=== PATIENT | male | born 1960 | race Caucasian/White ===

== ENCOUNTER → 2021-04-27 11:06 | Outpatient (BNVA) | payer OTHER, SELFPAY | PROVIDERS: PCP Physician Assistant; Visit Provider Orthopaedic Surgery | DX: R20.0 Anesthesia of skin (principal) | CPT/HCPCS: 99202 ==

== ENCOUNTER 2021-06-16 10:06 | Outpatient (REF) | payer OTHER, SELFPAY ==
--- NOTE | 2021-06-16 10:09 | EMG_ITS ---
Right median and ulnar motor and sensory studies were performed. Right radial sensory study was performed and paraspinal muscles were tested. IMPRESSION: 1. Moderately severe right median neuropathy across carpal tunnel. 2. Mild right ulnar neuropathy across cubital tunnel. MD SANTIAGO Bravo/AMY / [id number]
== END 2021-06-16 10:07 | disposition home or self-care (01) ==
LOC: HO.NEURO 10:06
PROVIDERS: PCP Internal Medicine; Visit Provider Orthopaedic Surgery
DX: R20.0 Anesthesia of skin (principal); R20.2 Paresthesia of skin
CPT/HCPCS: 95886; 95909

== ENCOUNTER → 2021-07-19 13:37 | Outpatient (BNVA) | payer OTHER, SELFPAY | PROVIDERS: PCP Internal Medicine; Visit Provider Orthopaedic Surgery | DX: G56.01 Carpal tunnel syndrome, right upper limb (principal); G56.21 Lesion of ulnar nerve, right upper limb | CPT/HCPCS: 99212 ==

== ENCOUNTER 2021-10-27 09:45 | Day surgery (SDC) | payer OTHER, SELFPAY ==
[2021-10-27 10:05] VITALS: BP 137/83; PULSE 72; RESP 18; TEMP 36.1; O2SAT 96
--- NOTE | 2021-10-27 11:21 | MHC.SHP ---
Pre-Procedural Eval Section A Date of Service: 10/27/21 The patient is an INPATIENT: No Changes since office visit: No Cold of Flu in the past 2 weeks, No New Medical Problems, No Changes in Medication and No Patient answered all questions The History & Physical has been completed within 30 days and I have reviewed it.: Yes Section B Chief Complaint: carpal tunnel syndrome Allergies: Allergies Allergy/AdvReac Type Severity Reaction Status Date / Time azithromycin [AZITHROMYCIN] AdvReac Mild NAUSEA Verified 10/27/21 10:18 Z-Bruce Allergy Unknown Unknown Uncoded 10/27/21 10:18 Plan I have reviewed the history and physical and performed a pertinent physical examination on my patient. No changes have occurred unless specified.
--- NOTE | 2021-10-27 11:21 | W.PM.OPN ---
Operative Note Operative Note Date of Service: 10/27/21 Narrative: Preop diagnosis: 1. right Carpal tunnel syndrome Postop diagnosis: same Procedure: 1. right Carpal tunnel release Surgeon: Tierra Cruz MD Anesthesia: local block using 1% lidocaine with epinephrine Findings: Thickened transverse carpal ligament. EBL: Less than 5 mL Specimens: None Complications: None Disposition: Brought to recovery room in stable condition Plan: Follow-up for 10-14 days for wound check and suture removal Indications: The patient is 61 years old, with right carpal tunnel syndrome that has been unresponsive to nonoperative management. The risks and benefits of operative treatment including but not limited to risk of damage to blood vessels, nerves, tendons, infection, persistent pain, persistent symptoms, or possible need for additional surgery were discussed with the patient and the patient wishes to proceed with surgery. Procedure: Once consent was obtained a local block was performed using a combination of 1% lidocaine with epinephrine. The patient was then brought back to the operating suite and placed on the operative table in supine position. A tourniquet was applied to the proximal aspect of the right upper extremity and the limb was prepped and draped in a standard surgical fashion. Once assured that we had a good block, a 1.5 cm longitudinal incision was made centered over the carpal tunnel. The incision was made through the skin to the subcutaneous tissues using a #15 blade. Dissection was made down to the level of the transverse carpal ligament with care being taken to protect the palmar cutaneous nerve. Once the transverse carpal ligament was clearly visualized, a longitudinal incision was made in the transverse carpal ligament 1st using a #15 blade, then using tenotomy scissors under direct visualization. Care was taken to look for and protect the motor branch of the median nerve when seen in this area. Once satisfied with our carpal tunnel release the wound was copiously irrigated with normal saline and hemostasis was obtained with a brief period of local pressure. The skin edges were reapproximated with some 5.0 nylon suture material and a sterile dressing was applied. The patient appears to have tolerated the procedure well and with no complications. All digits were well vascularized at the conclusion of the case.
[2021-10-27 14:12] VITALS: BP 156/75; PULSE 65; RESP 16; TEMP 36.4; O2SAT 97
== END 2021-10-27 14:24 | disposition home or self-care (01) ==
PROVIDERS: PCP Internal Medicine; Visit Provider Orthopaedic Surgery
PROC: (CPT 64721; principal; 2021-10-27 11:10)
DX: G56.01 Carpal tunnel syndrome, right upper limb (principal); R20.0 Anesthesia of skin; G56.21 Lesion of ulnar nerve, right upper limb; E11.9 Type 2 diabetes mellitus without complications; Z79.84 Long term (current) use of oral hypoglycemic drugs; Z79.899 Other long term (current) drug therapy; Z88.1 Allergy status to other antibiotic agents; F10.10 Alcohol abuse, uncomplicated; F19.10 Other psychoactive substance abuse, uncomplicated
CPT/HCPCS: 64721

== ENCOUNTER → 2021-12-02 10:21 | Outpatient (BNVA) | payer OTHER, SELFPAY | PROVIDERS: Visit Provider Physician Assistant | DX: G56.01 Carpal tunnel syndrome, right upper limb (principal) | CPT/HCPCS: 99212 ==

== ENCOUNTER → 2022-01-17 13:01 | Outpatient (BNVA) | payer OTHER, SELFPAY | PROVIDERS: Visit Provider Physician Assistant | DX: Z09 Encounter for follow-up examination after completed treatment for conditions other than malignant neoplasm (principal); Z86.69 Personal history of other diseases of the nervous system and sense organs | CPT/HCPCS: 99212 ==

== ENCOUNTER 2024-12-22 09:58 | Outpatient (REF) | payer OTHER, SELFPAY ==
[2024-12-22 11:29] LABS: Erythrocyte Sedimentation Rate 4 MM/HR (0-15)
--- OUTSIDE RECORDS SUMMARY | 2024-12-22 11:39 | XMS_ITS | Encounter Summary ---
Author Organization [facility] Address [address] [facility] [address] [place] [address] Phone Care Team Providers Care Flatbed Truck Driver Name Role Phone Juan Daniel Valle MD Primary Care Provider Unavail able Reason for Visit * Reason Comments Med Refill Encounter Details Date Type Department Care Team (Late st Contact Info) Description 07/22/2024 Refill [facility] [address] [facility] [address] [place] [phone] Quang Alfaro MD [address] [facility] [address] [place] [phone] Social History Tobacco Use Types Packs/Day Years Used Date Smoking Tobacco: Former Smokeless Tobacco: Former Alcohol Use Standard Drinks/Week Comments No 0 (1 standard drink = 0.6 oz pur e alcohol) Sex and Gender Information Value Date Recorded Sex Assigned at Not on file Legal Sex Male 5:01 PM EST Gender Identity Not on file Sexual Orientation Not on file documented as of this encounter Plan of Treatment Not on file documented as of this encounter Visit Diagnoses Not on filedocumented in this encounter Care Teams Flatbed Truck Driver Relationship Specialty Start Date End Date Juan Daniel Valle MD PCP - General Endocrinology 02/04/21 documented as of this encounter
--- OUTSIDE RECORDS SUMMARY | 2024-12-22 11:39 | XMS_ITS | Encounter Summary ---
Author Organization [facility] Address [address] [place] [address] Phone Care Team Providers Care Payroll Analyst Name Role Phone Juan Daniel Valle MD Primary Care Provider Unavail able Encounter Details Date Type Department Care Team (Late st Contact Info) Description 02/04/2021 Orders Only [facility] [address] [place] [address] Provider, MD Herbie [address] [place] [id number] Social History Tobacco Use Types Packs/Day Years Used Date Smoking Tobacco: Never Assessed Sex and Gender Information Value Date Recorded Sex Assigned at Not on file Legal Sex Male 5:01 PM EST Gender Identity Not on file Sexual Orientation Not on file documented as of this encounter Plan of Treatment Not on file documented as of this encounter Procedures Procedure Name Priority Date/Time Associated Diagnosis Comments EXT RESULT ENTRY Routine 11/23/2020 documented in this encounter Results * EXT RESULT ENTRY (11/23/2020) us Historical Provider LAB BLOOD ORDERABLES Dasia l Result documented in this encounter Visit Diagnoses Not on filedocumented in this encounter Care Teams Payroll Analyst Relationship Specialty Start Date End Date Juan Daniel Valle MD PCP - General Endocrinology 02/04/21 documented as of this encounter
--- OUTSIDE RECORDS SUMMARY | 2024-12-22 11:39 | XMS_ITS | Clinical Summary ---
Author Organization [address] Address [address] [place] [phone] Phone Care Team Providers Care Adjunct Business Instructor Name Role Phone Duarte Alarcon MD Primary Care Provider [phone] Allergies Active Allergy Reactions Criticality Noted Date Comments Azithromycin 02/03/2016 rash Indomethacin Nausea And Vomiting 10/31/2010 Other Reaction(s): OTHER gerd Lisinopril 03/30/2020 Dizziness. D/c by neph. Medications atorvastatin (LIPITOR) 10 mg tablet Take 1 Tablet by mouth daily for 360 days. 12/19/19 24 Active diclofenac (VOLTAREN) 1 % topical gel Apply 1 g topically 4 times daily as needed (pain). 12/19/19 24 Active ketoconazole (NIZORAL) 2 % cream APPLY 1 APPLICATION OF CREAM TOPICALLY TO AFFECTED AREA TWICE DAILY 09/28/19 24 Active blood sugar diagnostic (FreeStyle Lite Strips) test strip 1 Lancet by extracorporeal route 2 (two) times a day. 08/01/20 23 Active sildenafiL (VIAGRA) 100 mg tablet 1/2 to 1 tablet 1 hour before needed 06/01/20 23 Active tiZANidine (ZANAFLEX) 4 mg tablet Take 1 tablet (4 mg total) by mouth 3 (three) times a day if needed. 02/15/20 22 Active naproxen (NAPROSYN) 500 mg tablet Take 1 tablet (500 mg total) by mouth every 12 (twelve) hours. 02/13/20 22 Active buprenorphine -naloxone (Zubsolv) 11.4-2.9 mg tablet, sublingual Place 1 film under the tongue 1 (one) time each day. Max Daily Amount: 1 film 02/15/20 Active traZODone (DESYREL) 150 mg tablet Take 1-2 tablets (150-300 mg total) by mouth at bedtime as needed. 01/26/20 Active FREESTYLE LANCETS MISC USE 1 TO CHECK GLUCOSE TWICE PERRY 10/10/19 Active NIFEdipine (ADALAT CC) 30 mg 24 hr tablet Take 1 tablet (30 mg total) by mouth 1 (one) time each day before breakfast. 05/08/20 24 Active DULoxetine (CYMBALTA) [address] capsule Take 1 capsule (60 mg total) by mouth 1 (one) time each day. Active pen needle, diabetic (BD ULTRA-FINE ALCIDES PEN NEEDLE MISC) Insulin Pen Needle (BD PEN NEEDLE ALCIDES U/F) 32G X 4 MM Misc 1 needle per day for For Victoza 07/12/20 18 Active metoprolol tartrate (LOPRESSOR) 50 mg tablet Take 1 tablet by mouth twice daily 180 tablet 1 10/17/19 25 Active Trulicity 3 mg/0.5 mL pen injector injection INJECT 3 MG (0.5 ML) SUBCUTANEOUSLY ONCE A WEEK 6 mL 1 12/17/19 25 Active Jardiance 25 mg tablet Take 1 tablet by mouth once daily 90 tablet 1 12/20/19 25 Active dulaglutide (Trulicity) 3 mg/0.5 mL pen injector injection Inject 0.5 mL (3 mg total) under the skin 1 (one) time per week. 12/24/19 24 2024 Discontinued Jardiance 25 mg tablet Take 1 tablet by mouth once daily 90 tablet 09/19/19 25 2024 Discontinued Active Problems Problem Noted Date Diagnosed Date Type 2 diabetes mellitus with vascular disease 0 05/15/2019 Mood disorder 10/30/2015 Overview (08/09/2024): Dr. Levy Anxiety 10/29/2015 Polysubstance abuse 05/03/2015 DJD (degenerative joint disease), lumbar 012 Overweight (BMI 25.0-29.9) 12/09/2010 Erectile dysfunction 10/31/2010 Depressive disorder 09/29/2009 Essential hypertension, benign 04/19/2006 Encounters Date Type Department Care Team Description 09/30/2024 2:00 PM EST Office Visit Adult Medicine [address] [phone] Caleb Contreras PA Routine history and physical examination of adult (Primary Dx); Type 2 diabetes mellitus with vascular disease (CMS/HCC); Screening PSA (prostate specific antigen); Chronic bilateral low back pain, unspecified whether sciatica present; Imbalance; Forgetfulness; Drooling from Last 3 Months Immunizations Name Administration Dates Next Due Influenza Quadravalent, MDCK , 0.5ml, preservative free (Flucelvax) 6mo and older 06/01/2023,06/27/2018 Influenza trivalent, 0.5mL, preservative free (Fluarix; FluLaval; Fluzone) ages 6mo and older (Afluria) 3 years and older 07/12/2019,06/14/2017,07/26/2016,07/17,08/18/2010 Influenza trivalent, with pr eservative (Fluzone; Afluria) 6mo and older 06/13/2022,06/09/2020 Moderna SARS-CoV-2 COVID-19, mRNA, LNP-S, preservative free 01/30/2021,01/01/2021 Pneumococcal polysaccharide 23 valent (Pneumovax 23) 2yo and older 02/03/2016 Td Tetanus diptheria (Tdvax) 7yo and older 02/16/2022 Tdap Tetanus diptheria acell ular pertussis (Boostrix; Adacel) 7yo and older 11/12/2007 Surgical History Surgery Date Site/Laterality Comments COLONOSCOPY 01/17/2016 PROCEDURE: HISTORICAL COLONOSCOPY; COMMENT: normal Medical History Medical History Date Comments Type II or unspecified type diabetes mellitus with unspecified complication, not stated as uncontrolled DX:Type II or unspecified ty pe diabetes mellitus with unspecified complication, not stated as uncontrolled Essential hypertension, benign D X:Essential hypertension, benign Amblyopia, unspecified DX:Amblyo eugenio, unspecified Obesity 12/09/2010 DX:Obesity Family History Medical History Relation Name Comments No Known Problems Aunt No Known Problems Brother No Known Problems Father No Known Problems Maternal Grandfather No Known Problems Maternal Grandmother No Known Problems Mother No Known Problems Other No Known Problems Paternal Grandfather No Known Problems Paternal Grandmother No Known Problems Sister No Known Problems Uncle Blindness Neg Hx Cataracts Neg Hx Glaucoma Neg Hx Macular degeneration Neg Hx Strabismus Neg Hx Relation Name Status Comments Aunt Brother Father Maternal Grandfather Maternal Grandmother Mother Other Paternal Grandfather Paternal Grandmother Sister Uncle Social History Tobacco Use Types Packs/Day Years Used Date Smoking Tobacco: Never Cigarettes Qu it: 06/17/2005 Smokeless Tobacco: Never Tobacco Cessation:Counseling Given: Not Answered Alcohol Use Standard Drinks/Week Comments No 0 (1 standard drink = 0.6 oz pur e alcohol) Sex and Gender Information Value Date Recorded Sex Assigned at Not on file Legal Sex Male 7:28 AM EST Gender Identity Not on file Sexual Orientation Not on file Obstetrics History Last Filed Vital Signs Vital Sign Reading Time Taken Comments Blood Pressure 120/72 09/30/2024 2:13 PM EST Pulse 76 09/30/2024 2:13 PM EST Temperature 35.8 ??C (96.5 ??F) 09/30/2024 2:13 PM ES T Respiratory Rate - - Oxygen Saturation 93% 09/30/2024 2:13 PM EST Inhaled Oxygen Concentration - - Weight 87.4 kg (192 lb 11.2 oz) 09/30/2024 2:13 PM EST Height 172.7 cm (5' 7.99 ) 09/30/2024 2:13 PM ES T Body Mass Index 29.31 09/30/2024 2:13 PM EST Plan of Treatment Upcoming Encounters Date Type Department Care Team (Late st Contact Info) Description 04/02/2025 1:15 PM EDT Office Visit Adult Medicine [address] [phone] Duarte Alarcon MD [address] [place] [phone] Health Maintenance Due Date Last Done Comments Diabetes: Annual Foot Exam 1970 Diabetes: Annual Retina Eye Exam 1970 Hepatitis A Vaccines (1 of 2 - Risk 2-dose series) 1979 Zoster Vaccines (1 of 2) 2010 Pneumococcal Vaccine: 50+ Years (2 of 2 - PCV) 02/02/2017 02/03/2016 RSV Immunization Adult Patients (1 - Risk 60-74 years 1-dose series) 2020 HIV Screening 08/26/2022 Medicare Annual Wellness Visit 08/26/2022 Diabetes: Annual Urine Albumin-Creatinine Ratio (uACR) 06/01/2024 06/01/2023 Diabetes: Annual GFR (Glomerular Filtration Rate) 06/01/2024 06/01/2023 Hypertension/CHF/CAD Annual BMP Blood Test 06/01/2024 06/01/2023 Diabetes: Blood Sugar Control Test (HGBA1C) 06/19/2024 12/19/2023 Depression Screening 09/30/2025 09/30/2024 Social Influencers of Health Screening 09/30/2025 09/30/2024 Colorectal Cancer Screening: Colonoscopy 01/16/2026 01/17/2016 Cholesterol Screening (Lipid Panel) 06/01/2028 06/01/2023 DTaP,Tdap,and Td Vaccines (3 - Td or Tdap) 02/17/2032 02/16/2022, 11/12/2007 Pneumococcal Vaccine: Pediatrics (0 to 5 Years) and At-Risk Patients (6 to 64 Years) Discontinued 02/03/2016 Hepatitis C Screening Completed 04/08/2021 COVID-19 Vaccine Completed 06/26/2024, , 08/28/2021, Additional history exists Influenza Vaccine Completed 06/26/2024, , 06/13/2022, Additional history exists HIB Vaccines Aged Out No longer eligi ble based on patient's age to complete this topic HPV Vaccines Aged Out No longer eligi ble based on patient's age to complete this topic Hepatitis B Vaccines Aged Out No long er eligible based on patient's age to complete this topic IPV Vaccines Aged Out No longer eligi ble based on patient's age to complete this topic MMR Vaccines Aged Out No longer eligi ble based on patient's age to complete this topic Meningococcal ACWY Vaccine Aged Out N o longer eligible based on patient's age to complete this topic Meningococcal B Vacine Aged Out No lo nger eligible based on patient's age to complete this topic RSV Immunization Patients Under 20 months Aged Out No longer eligible based on patient's age to complete this topic Varicella Vaccines Aged Out No longer eligible based on patient's age to complete this topic Procedures Procedure Name Priority Date/Time Associated Diagnosis Comments HEMOGLOBIN A1C Routine 12/19/2023 URINE ALBUMIN CREATININE RATIO Routine 06/01/2023 ANNUAL BMP BLOOD TEST Routine 06/01/2023 LIPID PANEL Routine 06/01/2023 HEPATITIS C SCREENING Routine 04/08/2021 COLONOSCOPY Routine 01/17/2016 from Last 3 Months or Most Recently Relevant to Health Maintenance Results * (ABNORMAL) Hemoglobin A1c (12/19/2023) [facility] Hemoglobin A1C 8.3(A) <=6.5 % Blood Venous blood specimen / Unknown Result [facility] Provider LAB BLOOD ORDERABLES Dasia l Result * Urine Albumin Creatinine Ratio (06/01/2023) Pathologist [facility] Urine Albumin Creatinine Ratio Abstracted Result [facility] Provider HEALTH MAINTENANCE Final Result * Annual BMP Blood Test (06/01/2023) Pathologist [facility] Annual BMP Blood Test Abstracted Result [facility] Provider HEALTH MAINTENANCE Final Result * (ABNORMAL) Lipid panel (06/01/2023) [facility] LDL/HDL Ratio 3 0 - 4 Triglycerides 97 0 - 150 mg/dL Cholesterol 178 0 - 200 mg/dL HDL 58 >=40 mg/dL LDL Cholesterol 101(A) 0 - 100 mg/dL Blood Venous blood specimen / Unknown Result [facility] Provider LAB BLOOD ORDERABLES Dasia l Result * Hepatitis C Screening (04/08/2021) [facility] Hepatitis C Screening Abstracted Historical Provider HEALTH MAINTENANCE Final Result * Colonoscopy (01/17/2016) Colonoscopy No Interpretation , Abstracted Anatomical Region Laterality Modality Other us Historical Provider HEALTH MAINTENANCE Final Result from Last 3 Months or Most Recently Relevant to Health Maintenance Insurance MEDICARE [employer] MEDICARE Member Subscriber Plan / Payer (Ef fective 2024-Present) Name:Chito Fam Luci Relation to Subscriber:Self Name:Chito Fam Payer ID:[id number] Group ID:[id number] Type:Not on file Address: [address] [place] [address] Care Teams Adjunct Business Instructor Relationship Specialty Start Date End Date Duarte Alarcon MD [address] [place] [phone] PCP - General Internal Medicine 03/25/20
--- OUTSIDE RECORDS SUMMARY | 2024-12-22 11:39 | XMS_ITS | Encounter Summary ---
Author Organization [facility] Address [address] [facility] [address] [place] [address] Phone Care Team Providers Care Cement Side Laster Name Role Phone Juan Daniel Valle MD Primary Care Provider Unavail able Reason for Visit * Reason Comments Med Refill Encounter Details Date Type Department Care Team (Late st Contact Info) Description 05/04/2024 [facility]ill [facility] [address] [place] [phone] Quang Alfaro MD [address] [facility] [address] [place] [phone] Social History Tobacco Use Types Packs/Day Years [...] on filedocumented in this encounter Care Teams Cement Side Laster Relationship Specialty Start Date End Date Juan Daniel Valle MD PCP - General Endocrinology 02/04/21 documented as of this encounter
--- OUTSIDE RECORDS SUMMARY | 2024-12-22 11:39 | XMS_ITS | Clinical Summary ---
Author Organization [facility] Address [address] [address] Phone Care Team Providers Care Fruit Or Nut Farm Worker Name Role Phone Juan Daniel Valle MD Primary Care Provider Unavail able Allergies Active Allergy Reactions Criticality Noted Date Comments Azithromycin Rash Low 05/10/2021 Indomethacin Other (see comments) 05/10/2021 Medications traZODone (DESYREL) 150 MG tablet TAKE 2 TABLETS BY MOUTH EVERY DAY AT BEDTIME 1 Active FREESTYLE LITE test strip 1 Active Jardiance 25 MG tablet Take 1 tablet by mouth 1 (one) time each day 1 Active DULoxetine (CYMBALTA) [address] capsule TAKE 1 CAPSULE BY MOUTH ONCE DAILY IN THE MORNING FOR 30 DAYS 1 Active Trulicity 1.5 MG/0.5ML solution pen-injector INJECT 1.5MG (ONE HALF ML) SUBCUTANEOUSLY EVERY 7 DAYS 1 Active Zubsolv 11.4-2.9 MG sublingual tablet 1 Active amphetamine-de xtroamphetamin e (ADDERALL) 30 MG tablet Take 1 tablet by mouth 1 (one) time each day Active aspirin (ST LIANE) 81 MG EC tablet Take 1 tablet by mouth 1 (one) time each day Active metFORMIN (GLUCOPHAGE) 500 MG tablet Take 2 tablets by mouth 2 (two) times a day Active metoprolol succinate XL (TOPROL XL) 50 MG 24 hr tablet Take 1 tablet by mouth 2 (two) times a day Active sildenafil (VIAGRA) 100 MG tablet as directed Active NIFEdipine CC (ADALAT CC) 30 MG 24 hr tablet TAKE 1 TABLET BY MOUTH ONCE DAILY BEFORE BREAKFAST DO NOT CRUSH, CHEW, OR SPLIT 90 tablet 4 Active NIFEdipine CC (ADALAT CC) 30 MG 24 hr tablet Take 1 tablet (30 mg total) by mouth 1 (one) time each day before breakfast DO NOT CRUSH CHEW OR SPLIT 90 tablet 4 Active Active Problems Problem Noted Date Diagnosed Date Chronic kidney disease, stage 2 (mild) 2 Type 2 diabetes mellitus wit h diabetic chronic kidney disease 06/22/2022 Essential hypertension 05/10/2021 Hyperkalemia 05/10/2021 Type 2 diabetes mellitus 05/10/2021 Family History Medical History Relation Comments Hypertension Mother Relation Status Comments Father Alive Mother Social History Tobacco Use Types Packs/Day Years Used Date Smoking Tobacco: Former Smokeless Tobacco: Former Alcohol Use Standard Drinks/Week Comments No 0 (1 standard drink = 0.6 oz pur e alcohol) Sex and Gender Information Value Date Recorded Sex Assigned at Not on file Legal Sex Male 5:01 PM EST Gender Identity Not on file Sexual Orientation Not on file Last Filed Vital Signs Vital Sign Reading Time Taken Comments Blood Pressure 140/85 06/22/2022 3:28 PM EDT Pulse 66 06/22/2022 3:28 PM EDT Temperature - - Respiratory Rate - - Oxygen Saturation 99% 06/22/2022 3:28 PM EDT Inhaled Oxygen Concentration - - Weight 81.6 kg (180 lb) 06/22/2022 3:28 PM EDT Height 175.3 cm (5' 9 ) 06/26/2019 12:00 PM EDT Body Mass Index 26.58 06/26/2019 12:00 PM EDT Plan of Treatment Health Maintenance Due Date Last Done Comments Colorectal Cancer Screening: Annual FOBT 2009 Colorectal Cancer Screening: Colonoscopy 2009 Colorectal Cancer Screening: Sigmoidoscopy 2009 Pneumococcal Vaccine: Pediatrics (0 to 5 Years) and At-Risk Patients (6 to 64 Years) (2 of 2 - PCV) 02/02/2017 02/03/2016 Diabetes: Ophthalmology Exam 03/28/2021, 11/18/2013, 06/14/2012, Additional history exists Diabetes: Pedal Pulse Checked 03/28/2021 Diabetes: Sensory Foot Exam 03/28/2021 Diabetes: Visual Foot Exam 03/28/2021 Diabetes: Hemoglobin A1C 08/31/2023 023, 04/08/2021, 11/21/2019, Additional history exists Influenza Vaccine (Season Ended) 2025 06/01/2023, 06/01/2023, 06/27/2018 Hepatitis B Vaccine Aged Out No longe r eligible based on patient's age to complete this topic Procedures Procedure Name Priority Date/Time Associated Diagnosis Comments EXT RESULT ENTRY Routine 04/08/2021 from Last 3 Months or Most Recently Relevant to Health Maintenance Results * (ABNORMAL) EXT RESULT ENTRY (04/08/2021) WBC 8.8 3.3 - 10.0 10*3/ML Red Blood Cell Count 4.9 Hemoglobin 14.9 13.5 - 17.5 Hematocrit 44.7 41.0 - 53.0 Platelets 259 150 - 399 10*3/UL MCV 91.4 82.0 - 108.0 Sodium 137 137 - 147 Potassium 4.4 3.4 - 5.5 Chloride 101 99 - 108 Bicarbonate (CO2) 31(A) 22 - 30 mmol/L Anion Gap 5 <=30 MMOL/L Glucose 155 60 - 200 BUN 21 4 - 21 mg/dL Creatinine 0.65 0.60 - 1.30 mg/dL Calcium 8.8 8.7 - 10.7 mg/dL eGFR Non-Afr Iranian >60 Hemoglobin A1C 7.2(A) 4.0 - 6.0 04/08/2021 us Historical Provider LAB BLOOD ORDERABLES Dasia l Result from Last 3 Months or Most Recently Relevant to Health Maintenance Insurance [facility] Care Teams Fruit Or Nut Farm Worker Relationship Specialty Start Date End Date Juan Daniel Valle MD PCP - General Endocrinology 02/04/21
--- OUTSIDE RECORDS SUMMARY | 2024-12-22 11:39 | XMS_ITS | Encounter Summary ---
Author Organization [facility] Address [address] [place] [address] Phone Care Team Providers Care Woodyard Operator Name Role Phone Juan Daniel Valle MD Primary Care Provider Unavail able Encounter Details Date Type Department Care Team (Late st Contact Info) Description 06/20/2022 Telephone [facility] [address] [place] [phone] Arielle Martin Social History Tobacco Use Types Packs/Day Years [...] on file documented as of this encounter Miscellaneous Notes * Telephone Encounter - Arielle Martin - 06/20/2022 3:59 PM EDT PT called needing a refill for NIFEdipine CC (ADALAT CC) 30 MG 24 hr tablet, PT hasn't been seen zeke year please advise. documented in this encounter Plan of Treatment Not on file documented as of this encounter Visit Diagnoses Not on filedocumented in this encounter Care Teams Woodyard Operator Relationship Specialty Start Date End Date Juan Daniel Valle MD PCP - General Endocrinology 02/04/21 documented as of this encounter
[2024-12-23 10:57] LABS: Lyme Abs Screen <0.90 index
== END 2024-12-22 09:59 | disposition home or self-care (01) ==
LOC: HO.LAB 09:58
PROVIDERS: Absent Provider Psychiatry & Neurology Neurology; PCP Internal Medicine; Visit Provider Psychiatry & Neurology Neurology
DX: M79.7 Fibromyalgia (principal)
CPT/HCPCS: 36415; 82550; 85652; 86617; 86618

== ENCOUNTER 2025-04-30 13:33 | Outpatient (AMB) | payer OTHER, SELFPAY ==
--- NOTE | 2025-04-30 13:39 | A.OFFVIS_ITS ---
Intake Visit Reasons: 4 Months Allergies azithromycin (AZITHROMYCIN) Adverse Reaction (Mild, Verified 01/17/22 13:10) NAUSEA Z-Bruce Allergy (Unknown, Uncoded 01/17/22 13:10) Unknown HPI Comments Details: 65 yo man with type II DM, HTN, and substance abuse, including active use of Fentanyl and cocaine, and fibromyalgia type of symptoms. He is presenting with chronic back pain associated with degenerative disc disease affecting his cervical and lumbar spine. This condition leads to significant neck discomfort and upper back muscle spasms, markedly influencing his functional capacity. He manages his symptoms with pregabalin, which offers some relief for nerve pain, and reports beneficial effects from muscle relaxers, though his usage is limited due to a history of cocaine addiction. The patient consults regularly for hypertension management, currently treated with nifedipine, but notes persistent dizziness. Previous carpal tunnel surgeries have alleviated severe symptoms, yet numbness and tingling in his wrists persist. [facility] Medical History (Updated 04/30/25 @ 13:40 by Jenny Burnham MD) Hypertension MCI (mild cognitive impairment) Encephalopathy Drug abuse and dependence Fibromyalgia Central pontine myelinosis Multifactorial gait disorder Peripheral neuropathy Type II diabetes mellitus Marijuana abuse H/O cocaine abuse Cerebral microvascular disease Substance abuse RLS (restless legs syndrome) Insomnia Depression with anxiety Acute carpal tunnel syndrome of right wrist Carpal tunnel syndrome of left wrist Social History Current occupational status: retired Current occupation: rt hand Review of Systems Const Details: - Musculoskeletal: Reports chronic back pain, upper back spasms, wrist numbness, and tingling. - Neurologic: Reports dizziness; Denies hallucinations or memory issues. - Cardiovascular: Reports dizziness potentially linked to hypertension medication. - Substance Use: Reports past cocaine addiction and reduced marijuana use; Denies alcohol consumption. Physical Exam Neuro Other: Mental Status: Alert and oriented to person, place, and time. Normal attention. Normal spontaneous speech, fluency, and comprehension. Cranial Nerves: CN II: Visual zaldivar full to confrontation, visual acuity intact. CN III, IV, : Pupils equal, round, reactive to light and accommodation. Extraocular movements are normal. CN V: Facial sensation is normal. CN VII: Facial movements symmetrical. CN VIII: Hearing intact to bedside conversation is normal. CN IX, X: Palate elevates symmetrically. CN XI: Shoulder shrug and head turn symmetrical. CN XII: Tongue midline without atrophy or fasciculations. Speech: Normal; no dysarthria or tremor. Assessment & Plan Assessment & Plan (1) Fibromyalgia: Comment: MRI brain WO at [facility] in Dec 2024: Mild to mod MVD, especially in daly sug gestive of CPM MRI whole spine at [facility] in 2020: DJD, mod C 5/6 stenosis, T 7/8 central disc, pontine hyperintensity, ?CPM Code(s): M79.7 - Fibromyalgia Category: Medical (2) MCI (mild cognitive impairment): Code(s): G31.84 - Mild cognitive impairment of uncertain or unknown etiology Category: Medical Plan Impression: Chronic pain syndrome Rec: a: Pregabilin 100mg bid b: Tizanidine 4mg bid Medications: Changed From tizanidine (Zanaflex) 4 mg PO ONCE 90 tabs 0RF To tizanidine (Zanaflex) 4 mg PO BID 180 tabs 1RF Coding Level of Care Code Est Pt Level 4 (66567) Diagnoses Fibromyalgia M79.7 MCI (mild cognitive impairment) G31.84
--- OUTSIDE RECORDS SUMMARY | 2025-04-30 14:24 | XMS_ITS | Clinical Summary ---
Author Organization [facility] Address [address] [address] Phone Care Team Providers Care Wooden Fence Erector Name Role Phone Duarte Alarcon MD Primary Care Provider [phone] Allergies Active Allergy Reactions Criticality Noted Date Comments Azithromycin Rash Low 05/10/2021 Indomethacin Other (see comments) 05/10/2021 Lisinopril 03/30/2020 Dizziness. D/c by neph. Medications traZODone (DESYREL) 150 MG tablet TAKE [...] NOT CRUSH CHEW OR SPLIT 90 tablet Active Additional Information Patient not taking.Reported on 01/27/2025 desvenlafaxine (PRISTIQ) 50 MG 24 hr tablet Take 50 mg by mouth 1 (one) time each day Do not crush, chew, or split. Active pregabalin (LYRICA) 100 MG capsule Take 100 mg by mouth in the morning and 100 mg in the evening. Active escitalopram (LEXAPRO) 5 MG tablet Take 5 mg by mouth 1 (one) time each day Active hydroCHLOROthi azide (HYDRODIURIL) 50 MG tablet Take 50 mg by mouth 1 (one) time each day Active NIFEdipine CC (ADALAT CC) 30 MG 24 hr tablet Take 1 tablet (30 mg total) by mouth 1 (one) time each day before breakfast DO NOT CRUSH CHEW OR SPLIT 90 tablet 5 Active Active Problems Problem Noted Date Diagnosed Date Chronic kidney disease, stage 2 (mild) 2 Type 2 diabetes mellitus wit h diabetic chronic kidney disease 06/22/2022 Essential hypertension 05/10/2021 Hyperkalemia 05/10/2021 Type 2 diabetes mellitus 05/10/2021 Immunizations Immunization Administration Dates Next Due Influenza (IM) Preservative Free 019,06/14/2017,07/26/2016, 4,08/18/2010 Influenza, MDCK, PF, Quadrivalent 06/01/2023,07/2018 Moderna SARS-COV-2 08/28/2021,01/30/2021, 021 Pfizer SARS-COV-2 06/13/2022 Pneumococcal Polysaccharide 02/03/2016 Td 02/16/2022 Family History Medical History Relation Comments Hypertension [...] Sign Reading Time Taken Comments Blood Pressure 129/66 01/27/2025 4:05 PM EDT Pulse 75 01/27/2025 4:05 PM EDT Temperature - - Respiratory Rate - - Oxygen Saturation 99% 01/27/2025 4:05 PM EDT Inhaled Oxygen Concentration - - Weight 93.3 kg (205 lb 9.6 oz) 01/27/2025 4:05 P M EDT Height 175.3 cm (5' 9 ) 06/26/2019 12:00 PM EDT Body Mass Index 30.36 06/26/2019 12:00 PM EDT Plan of Treatment Health Maintenance Due Date Last Done Comments Colorectal Cancer Screening: Annual FOBT 2009 Colorectal Cancer Screening: Colonoscopy 2009 Colorectal Cancer Screening: Sigmoidoscopy 2009 Pneumococcal Vaccine: 50+ Years (2 of 2 - PCV) 02/02/2017 02/03/2016 Diabetes: Ophthalmology Exam 03/28/2021 12/06/2017, 11/18/2013, 06/14/2012, Additional history exists Diabetes: Pedal Pulse Checked 03/28/2021 Diabetes: Sensory Foot Exam 03/28/2021 Diabetes: Visual Foot Exam 03/28/2021 Diabetes: Hemoglobin A1C 03/19/202412/18/ 024, 06/01/2023, 04/08/2021, Additional history exists Influenza Vaccine (#1) 2025 3, 06/01/2023, 07/12/2019, Additional history exists Pneumococcal Vaccine: Peds (0 to 5 Years) and At-Risk Patients (6 to 49 Years) Discontinued 02/03/2016 Hepatitis B Vaccine Aged Out No longe [...] 8.8 8.7 - 10.7 mg/dL eGFR Non-Afr Spanish >60 Hemoglobin A1C 7.2(A) 4.0 - 6.0 04/08/2021 [facility] Provider LAB BLOOD ORDERABLES Dasia l Result from Last 3 Months or Most Recently Relevant to Health Maintenance Insurance [facility] [place] [id number] [facility] Care Teams [employer]ence Erector Relationship Specialty Start Date End Date Duarte Alarcon MD [address] [place] [address] [place] [id number] PCP - General Internal Medicine 01/27/25
--- OUTSIDE RECORDS SUMMARY | 2025-04-30 14:24 | XMS_ITS | Clinical Summary ---
Author Organization [address] Address [address] [place] [phone] Phone Care Team Providers Care [employer] Name Role Phone Duarte Alarcon MD Primary Care Provider Allergies Active Allergy Reactions Criticality Noted Date [...] TO CHECK GLUCOSE TWICE PERRY 10/10/19 Active DULoxetine (CYMBALTA) [address] capsule Take 1 capsule (60 mg total) by mouth 1 (one) time each day. Active pen needle, diabetic (BD ULTRA-FINE ALCIDES PEN NEEDLE MISC) Insulin Pen Needle (BD PEN NEEDLE ALCIDES U/F) 32G X 4 MM Misc 1 needle per day for For Victoza 07/12/20 Active Trulicity 3 mg/0.5 mL pen injector injection INJECT 3 MG (0.5 ML) SUBCUTANEOUSLY ONCE A WEEK 6 mL 1 12/17/19 25 Active Jardiance 25 mg tablet Take 1 tablet by mouth once daily 90 tablet 1 12/20/19 25 Active memantine (NAMENDA) 5 mg tablet Take 1 tablet (5 mg total) by mouth 2 (two) times a day. 03/29/20 25 Active pregabalin (LYRICA) 100 mg capsule Take 1 capsule (100 mg total) by mouth 2 (two) times a day. Active desvenlafaxin e succinate (PRISTIQ) 50 mg 24 hr tablet Take 1 tablet (50 mg total) by mouth 1 (one) time each day in the morning. Active acetaminophen (TYLENOL) 500 mg tablet Take 1 tablet (500 mg total) by mouth 1 (one) time each day if needed for mild pain. Takes 3 tablets every morning and up to 2 more tabs daily if needed Active NIFEdipine CC (ADALAT CC) 60 mg 24 hr tablet Take 1 tablet (60 mg total) by mouth 1 (one) time each day. Do not crush, chew, or split. 90 tablet 1 04/02/20 25 2025 Active metoprolol tartrate (LOPRESSOR) 50 mg tablet Take 1 tablet by mouth twice daily 180 tablet 04/09/20 25 Active NIFEdipine (ADALAT CC) 30 mg 24 hr tablet Take 1 tablet (30 mg total) by mouth 1 (one) time each day before breakfast. 05/08/20 24 2024 Discontinued metoprolol tartrate (LOPRESSOR) 50 mg tablet Take 1 tablet by mouth twice daily 180 tablet 1 10/17/192024 Discontinued Active Problems Problem Noted Date Diagnosed Date Type 2 diabetes mellitus wit h vascular disease ([facility] [place]24, [facility] V28) 05/15/2019 Mood disorder ([facility] V24) 10/30/2015 Overview (08/09/2024): Dr. Levy Anxiety 10/29/2015 Polysubstance abuse ([facility] V24, [facility] V28) 0 05/03/2015 DJD (degenerative joint disease), lumbar 012 Overweight (BMI 25.0-29.9) 12/09/2010 Erectile dysfunction 10/31/2010 Depressive disorder 09/29/2009 Essential hypertension, benign 04/19/2006 Encounters Date Type Department Care Team Description 04/02/2025 1:15 PM EDT Office Visit Adult Medicine [address] [phone] Duarte Alarcon MD Type 2 diabetes mellitus with hyperglycemia, without long-term current use of insulin ([facility] V24, [facility] V28) (Primary Dx); High cholesterol; Essential hypertension, benign; Onychomycosis; Ingrown nail; Polysubstance abuse ([facility] V24, [facility] V28) from Last 3 Months Immunizations Name Administration [...] Sign Reading Time Taken Comments Blood Pressure 164/94 04/02/2025 1:27 PM EDT Bp to be rechecked per provider Pulse 66 04/02/2025 1:27 PM EDT Temperature 36.4 C (97.6 F) 04/02/2025 1:27 PM EDT Respiratory Rate 14 04/02/2025 1:27 PM EDT Oxygen Saturation 99% 04/02/2025 1:2 7 PM EDT Inhaled Oxygen Concentration - - Weight 89.4 kg (197 lb) 04/02/2025 1:27 PM EDT Height 170.2 cm (5' 7 ) 04/02/2025 1:27 PM EDT Body Mass Index 30.85 04/02/2025 1:27 PM EDT Plan of Treatment Upcoming Encounters Date Type Department Care Team (Late st Contact Info) Description 05/13/2025 1:30 PM EDT Office Visit Adult Medicine [facility] [address] [place] [address] Caleb Contreras PA [address] [place] [address] Health Maintenance Due Date Last Done Comments Diabetes: Annual Foot Exam 1970 Diabetes: Annual Retina Eye Exam 1970 Hepatitis A Vaccines (1 of 2 - Risk 2-dose series) 1979 Zoster Vaccines (1 of 2) 2010 Pneumococcal Vaccine: 50+ Years (2 of 2 - PCV) 02/02/2017 02/03/2016 RSV Immunization Adult Patients (1 - Risk 60-74 years 1-dose series) 2020 Medicare Annual Wellness Visit 08/26/2022 Depression Screening 09/17/2024 COVID-19 Vaccine ( season) 2025 06/26/2024, 06/13/2022, 08/28/2021, Additional history exists Falls Risk Assessment 2025 Influenza Vaccine (#1) 2025 , 06/01/2023, 06/13/2022, Additional history exists Social Influencers of Health Screening 09/30/2025 09/30/2024 Diabetes: Blood Sugar Control Test (HGBA1C) 10/03/2025 04/02/2025, 12/19/2023 Colorectal Cancer Screening: Colonoscopy 01/16/2026 01/17/2016 Diabetes: Annual Urine Albumin-Creatinine Ratio (uACR) 04/02/2026 04/02/2025, 06/01/2023 Diabetes: Annual GFR (Glomerular Filtration Rate) 04/02/2026 04/02/2025, 06/01/2023 Hypertension/CHF/CAD Annual BMP Blood Test 04/02/2026 04/02/2025, 06/01/2023 Cholesterol Screening (Lipid Panel) 04/02/2030 04/02/2025, 06/01/2023 DTaP,Tdap,and Td Vaccines (3 - Td or Tdap) 02/17/2032 02/16/2022, 11/12/2007 Hepatitis C Screening Completed 04/08/2021 HIB Vaccines Aged Out No longer eligi [...] age to complete this topic Meningococcal B Vaccine Aged Out No l onger eligible based on patient's age to complete this topic RSV Immunization Patients Under 20 months Aged Out No longer eligible based on patient's age to complete this topic Varicella Vaccines Aged Out No longer eligible based on patient's age to complete this topic Procedures Procedure Name Priority Date/Time Associated Diagnosis Comments HEMOGLOBIN A1C Routine 04/02/2025 2:12 PM EDT Type 2 diabetes mellitus with hyperglycemia, without long-term current use of insulin ([facility] V24, [facility] V28) LIPID PANEL WITH REFLEX TO DIRECT LDL Routine 04/02/2025 2:12 PM EDT High cholesterol COMPREHENSIVE METABOLIC PANEL Routine 04/02/2025 2:12 PM EDT Type 2 diabetes mellitus with hyperglycemia, without long-term current use of insulin ([facility] V24, [facility] V28) Essential hypertension, benign MICROALBUMIN CREATININE URINE RATIO Routine 04/02/2025 2:12 PM EDT Type 2 diabetes mellitus with hyperglycemia, without long-term current use of insulin ([facility] V24, [facility] V28) HM HEPATITIS C SCREENING Routine 04/08/2021 COLONOSCOPY Routine 01/17/2016 from Last 3 Months or Most Recently Relevant to Health Maintenance Results * (ABNORMAL) Lipid panel with reflex to direct LDL (04/02/2025 2:12 PM EDT) Cholesterol 206(H) 0 - 200 mg/dL LAB CHEMISTRY METHOD 04/02/2025 5:30 PM EDT [facility] Triglycerides 90 0 - 150 mg/dL LAB CHEMISTRY METHOD 04/02/2025 5:30 PM EDT [facility] HDL 67 >=40 mg/dL LAB CHEMISTRY METHOD 04/02/2025 5:30 PM EDT [facility] LDL Calculated 121(H) 0 - 100 mg/dL LAB CHEMISTRY METHOD 04/02/2025 5:30 PM EDT [facility] VLDL Cholesterol Drew 18 mg/dL LAB CHEMISTRY METHOD 04/02/2025 5:30 PM EDT [facility] Non HDL Chol. (LDL+VLDL) 139 <145 mg/dL LAB CHEMISTRY METHOD 04/02/2025 5:30 PM EDT [facility] Chol/HDL Ratio 3.1 0.0 - 4.4 LAB CHEMISTRY METHOD 04/02/2025 5:30 PM EDT [facility] Blood Venous blood specimen / Unknown Venipuncture / Unknown 04/02/2025 2:12 PM EDT 04/02/2025 2:12 PM EDT us Duarte Alarcon MD LAB BLOOD ORDERABLES Final Resu lt [facility] [address] [place] [address], [place] [phone] * (ABNORMAL) Microalbumin creatinine urine ratio (04/02/2025 2:12 PM EDT) Creatinine, Urine 50.0 mg/dL LAB CHEMISTRY METHOD 04/02/2025 6:10 PM EDT [facility] Microalb, Ur 18.8 0.0 - 29.0 mg/L LAB CHEMISTRY METHOD 04/02/2025 6:10 PM EDT [facility] Microalb/Creat Ratio 38(H) <30 mg/g creat LAB CHEMISTRY METHOD 04/02/2025 6:10 PM EDT [facility] Urine Urine specimen obtained by clean catch procedure / Unknown Non-blood Collection / Unknown 04/02/2025 2:12 PM EDT 04/02/2025 2:12 PM EDT us Duarte Alarcon MD LAB URINE ORDERABLES Final Resu lt Performing Organization Address [facility]/ZIP Co de Phone Number [facility] [address] [place] [address], [place] [phone] * (ABNORMAL) Hemoglobin A1c (04/02/2025 2:12 PM EDT) [facility] Hemoglobin A1C 8.0(H) <6.5 % LAB CHEMISTRY METHOD 04/02/2025 9:43 PM EDT [facility] Mean Bld Glu Estim. 183 mg/dL LAB CHEMISTRY METHOD 04/02/2025 9:43 PM EDT [facility] Blood Venous blood specimen / Unknown Venipuncture / Unknown 04/02/2025 2:12 PM EDT 04/02/2025 2:12 PM EDT us Duarte Alarcon MD LAB BLOOD ORDERABLES Final Resu lt Performing Organization Address City/[facility]/ZIP Co de Phone Number [facility] [address] [place] [address], [place] [phone] * (ABNORMAL) Comprehensive metabolic panel (04/02/2025 2:12 PM EDT) Sodium 136 133 - 145 mmol/L LAB CHEMISTRY METHOD 04/02/2025 5:35 PM [facility] Potassium 5.1 3.5 - 5.5 mmol/L LAB CHEMISTRY METHOD 04/02/2025 5:35 PM [facility] Chloride 103 96 - 110 mmol/L LAB CHEMISTRY METHOD 04/02/2025 5:35 PM [facility] CO2 30 21 - 32 mmol/L LAB CHEMISTRY METHOD 04/02/2025 5:35 PM [facility] Anion Gap 3 3 - 11 LAB CHEMISTRY METHOD 04/02/2025 5:35 PM [facility] Glucose 203(H) 70 - 100 mg/dL LAB CHEMISTRY METHOD 04/02/2025 5:35 PM [facility] BUN 14 5 - 25 mg/dL LAB CHEMISTRY METHOD 04/02/2025 5:35 PM [facility] Creatinine 0.79 0.70 - 1.30 mg/dL LAB CHEMISTRY METHOD 04/02/2025 5:35 PM [facility] eGFR 99 >=60 mL/min/1. 73m2 LAB CHEMISTRY METHOD 04/02/2025 5:35 PM [facility] Comment:Calculation based on the Chronic Kidney Disease Epidemiology Collaboration (CKD-EPI) equation refit without adjustment for race. BUN/Creatinine Ratio 17.7 LAB CHEMISTRY METHOD 04/02/2025 5:35 PM [facility] Calcium 9.3 8.5 - 10.5 mg/dL LAB CHEMISTRY METHOD 04/02/2025 5:35 PM [facility] AST (SGOT) 15 10 - 42 unit/L LAB CHEMISTRY METHOD 04/02/2025 5:35 PM [facility] ALT (SGPT) 36 10 - 60 unit/L LAB CHEMISTRY METHOD 04/02/2025 5:35 PM [facility] Alkaline Phosphatase 110 42 - 121 unit/L LAB CHEMISTRY METHOD 04/02/2025 5:35 PM EDT [facility] Total Protein 7.6 6.0 - 8.0 g/dL LAB CHEMISTRY METHOD 04/02/2025 5:35 PM EDT [facility] Albumin 4.2 3.2 - 5.0 g/dL LAB CHEMISTRY METHOD 04/02/2025 5:35 PM EDT [facility] Total Bilirubin 0.3 0.0 - 1.4 mg/dL LAB CHEMISTRY METHOD 04/02/2025 5:35 PM EDT [facility] Blood Venous blood specimen / Unknown Venipuncture / Unknown 04/02/2025 2:12 PM EDT 04/02/2025 2:12 PM EDT Duarte Alarcon MD LAB BLOOD ORDERABLES Final Resu lt [facility] [address] [place] [address], * Hepatitis C Screening (04/08/2021) [facility] Hepatitis C Screening Abstracted Historical [employer] Final Result * Colonoscopy (01/17/2016) [facility] Colonoscopy No Interpretation , Abstracted Anatomical Region Laterality Modality Other Historical [employer] Final Result from Last 3 Months or Most Recently Relevant to Health Maintenance Insurance MEDICARE [facility] MEDICARE Member Subscriber Plan / Payer (Ef fective 2024-Present) Name:CHITO HOWARD Relation to Subscriber:Self Name:Chito Howard Payer ID:[id number] Group ID:[id number] Type:Not on file Address: [address] [place] [phone] Care Teams Men[employer]S Swim Coach Relationship Specialty Start Date End Date Duarte Alarcon MD [address] [place] [id number] PCP - General Internal Medicine 03/25/20
== END 2025-04-30 13:59 | disposition home or self-care (01) ==
LOC: HO.HSM 13:34
PROVIDERS: PCP Internal Medicine; Referring Provider Internal Medicine; Visit Provider Psychiatry & Neurology Neurology
DX: M79.7 Fibromyalgia (principal); G31.84 Mild cognitive impairment of uncertain or unknown etiology
CPT/HCPCS: 99214

== ENCOUNTER → 2025-04-30 13:33 | Outpatient (BNVA) | payer OTHER, SELFPAY | PROVIDERS: PCP Internal Medicine; Referring Provider Internal Medicine; Visit Provider Psychiatry & Neurology Neurology | DX: M79.7 Fibromyalgia (principal); G89.4 Chronic pain syndrome; G31.84 Mild cognitive impairment of uncertain or unknown etiology; R42 Dizziness and giddiness; E11.9 Type 2 diabetes mellitus without complications; I10 Essential (primary) hypertension | CPT/HCPCS: 99212 ==